=== PATIENT | male | born 1960 | race Caucasian/White ===

== ENCOUNTER 2023-05-27 15:57 | Outpatient (CLI) | payer BC, SELFPAY | END 2023-05-27 15:58 | disposition home or self-care (01) | PROVIDERS: PCP Family Medicine; Visit Provider Family Medicine | DX: Z00.00 Encounter for general adult medical examination without abnormal findings (principal); R05.9 Cough, unspecified; Z12.5 Encounter for screening for malignant neoplasm of prostate; Z13.6 Encounter for screening for cardiovascular disorders | CPT/HCPCS: 80053; 80061; 84153 ==

== ENCOUNTER 2024-06-13 15:04 | Outpatient (CLI) | payer BC, SELFPAY ==
--- NOTE | 2024-06-13 16:00 | CRLHL7_ITS ---
For Patients: As a result of the Century Cures Act, medical imaging exams and procedure reports are released immediately into your electronic medical record. You may view this report before your referring provider. If you have questions, please contact your health care provider. INDICATION: Headaches. COMPARISON: None. TECHNIQUE: Noncontrast CT head. FINDINGS: Normal brain parenchymal morphology. Mild generalized volume loss. No acute intracranial hemorrhage, acute infarct, focal edema, mass effect, or fracture. No midline shift. No abnormal ventricular dilatation. Normal calvarium and skull base. Visualized paranasal sinuses and mastoid air cells are clear. Normal orbits bilaterally. Soft tissue density/cerumen within the external auditory canals bilaterally. IMPRESSION: 1. No acute intracranial abnormality. 2. Mild generalized cerebral volume loss Please note that all CT scans at this facility use dose modulation, iterative reconstruction, and/or weight-based dosing when appropriate to reduce radiation dose to as low as reasonably achievable. Dictated by Duncan Cassidy MD @ 06/13/2024 5:24:26 PM (Electronically Signed)
== END 2024-06-13 15:05 | disposition home or self-care (01) ==
PROVIDERS: PCP Family Medicine; Visit Provider Family Medicine
DX: R51.9 Headache, unspecified (principal); R42 Dizziness and giddiness
CPT/HCPCS: 70450; 80053; 86140

== ENCOUNTER 2024-08-27 08:58 | Outpatient (CLI) | payer BC, SELFPAY | END 2024-08-27 08:59 | disposition home or self-care (01) | LOC: NFLDUCREF 08:59 | PROVIDERS: PCP Family Medicine; Visit Provider Nurse Practitioner | DX: R05.9 Cough, unspecified (principal) | CPT/HCPCS: 85379 ==

== ENCOUNTER 2024-08-27 10:59 | Emergency (ER) | payer BC, SELFPAY ==
--- NOTE | 2024-08-27 11:14 | CRLHL7_ITS ---
For Patients: As a result of the Cures Act, medical imaging exams and procedure reports are released immediately into your electronic medical record. You may view this report before your referring provider. If you have questions, please contact your health care provider. INDICATION: Cough, shortness of breath. Recent fall with rib fracture. Elevated D-dimer and elevated liver enzymes. TECHNIQUE: CT chest PE was acquired with 95 cc Isovue 370 intravenous contrast. COMPARISON: None. FINDINGS: Heart and vasculature: Contrast opacification of the pulmonary arterial tree is adequate. No sign of pulmonary embolism. Aortic arch is left-sided with atherosclerotic calcification. Mild coronary atherosclerosis. No pericardial effusion. Lungs and pleural: No pleural effusion or pneumothorax. Slight centrilobular nodularity within the left lower lobe. Lymph nodes/mediastinum: Calcified mediastinal and left hilar lymph nodes. Chest wall: No masses. Upper abdomen: Diffusely decreased density of the liver. Punctate calcifications within the spleen consistent with old granulomatous disease. Bones: Subacute left 11th rib fracture posteriorly. IMPRESSION: 1. No evidence of pulmonary embolus. 2. Slight centrilobular nodularity within the left lower lobe, possibly infectious bronchiolitis. 3. Subacute left 11th rib fracture posteriorly. 4. Severe hepatic steatosis. 5. Old granulomatous disease. Please note that all CT scans at this facility use dose modulation, iterative reconstruction, and/or weight-based dosing when appropriate to reduce radiation dose to as low as reasonably achievable. Dictated by Titus South MD @ 08/27/2024 1:43:33 PM (Electronically Signed)
[2024-08-27 11:29] VITALS: BP 120/82; PULSE 104; RESP 12; TEMP 36.4; O2SAT 98; BMI 20.5
--- NOTE | 2024-08-27 11:40 | ED.GENADULT ---
HPI - General Adult General Time Seen by Provider: 11:40 Date Seen: 08/27/24 Chief complaint: Shortness of Breath/Dyspnea Stated complaint: poss DVT - from Time Seen by Provider: 08/27/24 11:20 Source: patient and RN notes reviewed Mode of arrival: ambulatory Limitations: no limitations History of Present Illness HPI narrative: This 63yo male is sent to ED from for ongoing cough, SOB and elevated d dimer. He went into today for ongoing coughing, development of inability to lie down without feeling short of breath and noting increasing shortness of breath with exertion. He has no history of prior blood clots, no history of cardiac disease. He has no internal chest pain, no fevers, doesn't think that he has contracted a new illness. He had a rib fracture diagnosed on 07/16/24 from a fall 3 days prior, was seen in . The chest images with left rib views showed a nondisplaced 11th posterior rib fracture and a small left pleural effusion. He was back in on 07/31/24 with multitude of symptoms and tested positive for influenza A. Received some zofran for some nausea and vomiting but no other treatments at that time outside of conservative home management. He was back in clinic () on 08/19/24 with increasing shortness of breath and worsening cough, reported history of COPD in a chronic daily smoker. Was treated with doxycycline 7days and 5 day course of prednisone which he reported did not change his symptoms. D-dimer in Urgent Care today was 1.51 with less than 0.5 being normal. White blood count was normal at 7130, hemoglobin normal at 14.9 but platelet count was 35[address]. His platelet count has typically been in the low 200,000 range on previous labs over the last 2 years. We will repeat his CBC here just to ensure that this is not in error. Patient had a chest x-ray done in clinic which was normal, this is included in the imaging of this note. Related Data Home Medications ?Medication ?Instructions ?Recorded ?Confirmed ibuprofen 800 mg tablet 1,200 mg PO Q8H PRN 06/13/24 08/27/24 Previous Rx's ?Medication ?Instructions ?Recorded fluoxetine 20 mg capsule 20 mg PO QDAY #30 caps 06/26/24 albuterol sulfate 90 mcg/actuation 2 puff inhalation Q4-6H PRN 08/27/24 aerosol inhaler shortness of breath or wheezing #6.7 grams amoxicillin 875 mg-potassium 1 tab PO BID #14 tabs 08/27/24 clavulanate 125 mg tablet benzonatate 200 mg capsule 200 mg PO BID PRN cough #20 caps 08/27/24 prednisone 20 mg tablet 20 mg PO BID #10 tabs 08/27/24 Allergies Allergy/AdvReac Type Severity Reaction Status Date / Time No Known Drug Allergies Allergy Verified 08/27/24 12:59 Review of Systems Status of ROS: Reports: 6 or more systems reviewed and unremarkable except as noted in History and below [facility] Medical History COPD (chronic obstructive pulmonary disease) ?J44.9 - Chronic obstructive pulmonary disease, unspecified (ICD-10) Cough ?R05.9 - Cough, unspecified (ICD-10) Social History What is your current living situation?: declined to answer Problems where you live: declined to answer In the past 12 months, utilities in danger of being shut off: declined to answer In past 12 months, lack of transportation kept you from medical appts, meetings, work, or getting things needed for daily living: declined to answer In the past 12 mos, have been you worried that your food would run out before you had money to buy more?: declined to answer In the past 12 mos, the food you bought just didn't last and you didn't have money to buy more?: declined to answer Smoking Status: Current every day smoker What tobacco products do you use: cigarettes Smoking packs per day: 2 Smoking cigarettes per day: 40.0 Years smoked: 45 Smoking pack-years: 90.00 How often do you have a drink containing alcohol: 4 or more times a week How many standard drinks containing alcohol do you have on a typical day: 7 to 9 How often do you have six or more drinks on one occasion: Daily or almost daily AUDIT-C Alcohol total score: 11 Non-prescribed substance use: denies use How often does anyone, including family, friends and others, physically hurt you: decline to answer How often does anyone, including family, friends and others, insult or talk down to you: decline to answer How often does anyone, including family, friends and others, threaten you with harm: decline to answer How often does anyone, including family, friends and others, scream or curse at you: decline to answer service: Yes Health Related Social Needs: unsheltered homelessness (Z59.02) Exam Const: Vital Signs, click to edit/add: Vital Signs - 24 hr 08/27/24 11:29 08/27/24 12:16 08/27/24 12:23 Temperature 97.6 F Pulse Rate 81 Pulse Rate [Pulse Oximeter] 104 H Respiratory Rate 12 14 Blood Pressure 143/96 H Blood Pressure [Ri ght Upper Arm] 120/82 Pulse Oximetry 98 96 96 Oxygen Delivery Me thod Room Air 08/27/24 13:35 08/27/24 13:45 Temperature Pulse Rate 98 82 Pulse Rate [Pulse Oximeter] Respiratory Rate 14 Blood Pressure 149/100 H Blood Pressure [Ri ght Upper Arm] Pulse Oximetry 99 97 Oxygen Delivery Me thod Patient is alert, interactive, no apparent distress. He is ambulatory into the ED of his own accord, was standing up getting his gown on when I came in. Pupils equal round reactive, sclera are injected but no periorbital swelling or erythema, no drainage. Symmetrical facial function, chewing gum, dentition in poor repair. Neck is supple, no adenopathy or masses. Lungs actually are clear, hear no wheezing or crackles, no tachypnea, no accessory muscle use. CV regular rate and rhythm, no murmur, normal S1-S2, no S3-S4. Abdomen is soft, slender, no rebound or guarding, no organomegaly. He has no lower extremity edema, no calf tenderness. Documenting provider has reviewed patient's vital signs: yes Course Course ED Course: This 63-year-old male is coming in with increasing cough, dyspnea and and exertional dyspnea. This could be a cardiac equivalent, could be underlying thromboembolic disease. Could be ongoing symptoms of postinflammatory change from having influenza. He could have secondary infection or pneumonia. We will be doing chest CT PE protocol, obtain full complement of labs. Will look at a troponin and EKG. Right now is hemodynamically stable, not hypoxic. Reevaluation(s) Time of Reevaluation #1: 13:04 Reevaluation #1: Did review with patient that his liver enzymes are elevated, were normal in June. He states he drinks a lot. I do wonder if the drinking and use of doxycycline may have triggered this. We are going to do a liver ultrasound, loader technician will try to put through all images of the liver that were obtained on his chest CT. He states he is breathing a little better now. Time of Reevaluation #2: 14:06 Reevaluation #2: Have reviewed patient's chest CT and the abdominal ultrasound with him. 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 His whole aorta should be studied outpatient at some time and followed appropriately. He is advised to consider smoking cessation. We like gonzalez reviewed the elevated liver enzymes in the hepatic steatosis. I do think there is definitely component of alcohol injury to the liver here as well. It is possible that the doxycycline may have added to this. He did just finish this. He needs his liver enzymes rechecked within the next week. We discussed signs and symptoms for return in the interim. He is also advised on alcohol cessation or at least minimizing alcohol. Vital Signs Vital signs: Initial Vital Signs Temperature 97.6 F 08/27/24 11:29 Temperature Source Oral 08/27/24 11:29 Pulse Rate 104 H 08/27/24 11:29 Respiratory Rate 12 08/27/24 11:29 Blood Pressure 120/82 08/27/24 11:29 Blood Pressure Mean 94 08/27/24 11:29 Pulse Oximetry 98 08/27/24 11:29 Oxygen Delivery Method Room Air 08/27/24 11:29 Vital Signs Temperature 97.6 F 08/27/24 11:29 Pulse Rate 104 H 08/27/24 11:29 Respiratory Rate 12 08/27/24 11:29 Blood Pressure 120/82 08/27/24 11:29 Pulse Oximetry 98 08/27/24 11:29 Oxygen Delivery Method Room Air 08/27/24 11:29 Temperature 97.6 F 08/27/24 11:29 Pulse Rate 82 08/27/24 13:45 Respiratory Rate 14 08/27/24 13:35 Blood Pressure 149/100 H 08/27/24 13:35 Pulse Oximetry 97 08/27/24 13:45 Oxygen Delivery Method Room Air 08/27/24 11:29 Medical Decision Making Lab Data Lab results reviewed: Yes I reviewed the patient's lab results Labs: Lab Results 08/27/24 Range/Units 11:55 WBC 6.75 (4.50-11.00) K/uL RBC 4.36 (4.30-5.90) m/uL Hgb 14.7 (13.5-17.5) gm/dL Hct 42.9 (37.0-53.0) % MCV 98 (80-100) fL MCH 34 (26-34) pg MCHC 34 (32-36) gm/dL RDW Coeff of Rola 12.9 (11.5-15.5) % Plt Count 82 L (140-440) K/uL Neut % (Auto) 74.4 H (42.0-72.0) % Lymph % (Auto) 9.5 L (20-44) % Harding % (Auto) 12.3 H (0.0-11.0) % Eos % (Auto) 1.2 (0.0-7.0) % Baso % (Auto) 1.3 (0.0-3.0) % Neut # (Auto) 5.00 (1.7-7.0) K/uL Lymph # (Auto) 0.60 L (0.90-2.90) K/uL Harding # (Auto) 0.80 (0.00-0.90) K/UL Eos # (Auto) 0.08 (0.00-0.50) K/uL Baso # (Auto) 0.09 (0.00-0.30) K/uL Abs Immat Gran (auto) 0.09 (0.00-0.30) K/uL Imm/Tot Granulo (auto) 1.3 % INR 0.78 L (0.91-1.10) APTT 28 (23-33) Seconds VBG pH 7.411 (7.32-7.43) VBG pCO2 47 (40-50) mmHG VBG pO2 < 30.1 (25-47) mmHG VBG HCO3 30 H (21-28) mmol/L Sodium 133 L (135-149) mmol/L Potassium 4.6 (3.6-5.1) mmol/L Chloride 98 (96-114) mmol/L Carbon Dioxide 27 (20-32) mmol/L Anion Gap 8 (7-15) mEq/L BUN 9 (7-30) mg/dL Creatinine 0.6 (0.5-1.5) mg/dL Estimated Creat Clear 71.17 Estimated GFR 110 ml/min Glucose 71 (60-115) mg/dL Lactate 2.8 H (0.5-1.9) mmol/L Calcium 8.4 (8.4-10.6) mg/dL Total Bilirubin 1.1 (0.1-1.5) mg/dL AST 291 H (12-35) U/L ALT 184 H (4-50) U/L Alkaline Phosphatase 167 H (40-150) U/L Troponin I < 0.01 L (0.01-0.04) ng/mL C-Reactive Protein 2.7 H (0.5-1.0) mg/dL NT-Pro-B Natriuret Pep 24 pg/mL Total Protein 7.7 (6.0-8.3) g/dL Albumin 4.2 (3.3-5.0) g/dL Imaging Data Chest x-ray: Attestation: I have reviewed the pertinent imaging results. Radiologist's impression: Patient: ERASTO HOOD Facility:?[facility] Patient ID:?[id number] Site Patient ID:?[id number]. Site :?[id number] Study:?XRay-Chest -08/27/2024 9:16:39 AM Ordering Physician:Darren Gonzalez Final Report: Indication: cough < 4 weeks, known left rib fracture Technique: Two view(s) of the chest. Comparison: 07/16/2024. Findings: Unchanged cardiomediastinal silhouette and pulmonary vasculature. Similar calcified left hilar lymph node. Lungs are well inflated. No new consolidation. No pleural effusion or pneumothorax. Known left 11th rib fracture is better seen on prior radiographs. Unchanged mild anterior wedging involving 2 adjacent lower thoracic vertebral bodies. Impression: No acute cardiopulmonary abnormality identified. Dictated by Latoya Dye MD @ 08/27/2024 9:25:21 AM (Electronic Signature) CT scan - chest: Attestation: I have reviewed the pertinent imaging results. Radiologist's impression: Patient: ERASTO HOOD Facility:?[facility] Patient ID:?[id number] Site Patient ID:?[id number]. Site :?[id number] Study:?CT-Chest Angio 95CC ISOVUE 370-08/27/2024 1:02:06 PM Ordering Physician:Karl Sandra Final Report: INDICATION: Cough, shortness of breath. Recent fall with rib fracture. Elevated D-dimer and elevated liver enzymes. TECHNIQUE: CT chest PE was acquired with 95 cc Isovue 370 intravenous contrast. COMPARISON: None. FINDINGS: Heart and vasculature: Contrast opacification of the pulmonary arterial tree is adequate. No sign of pulmonary embolism. Aortic arch is left-sided with atherosclerotic calcification. Mild coronary atherosclerosis. No pericardial effusion. Lungs and pleural: No pleural effusion or pneumothorax. Slight centrilobular nodularity within the left lower lobe. Lymph nodes/mediastinum: Calcified mediastinal and left hilar lymph nodes. Chest wall: No masses. Upper abdomen: Diffusely decreased density of the liver. Punctate calcifications within the spleen consistent with old granulomatous disease. Bones: Subacute left 11th rib fracture posteriorly. IMPRESSION: 1. No evidence of pulmonary embolus. 2. Slight centrilobular nodularity within the left lower lobe, possibly infectious bronchiolitis. 3. Subacute left 11th rib fracture posteriorly. 4. Severe hepatic steatosis. 5. Old granulomatous disease. Please note that all CT scans at this facility use dose modulation, iterative reconstruction, and/or weight-based dosing when appropriate to reduce radiation dose to as low as reasonably achievable. Dictated by Titus South MD @ 08/27/2024 1:43:33 PM (Electronic Signature) US - abdomen: Attestation: I have reviewed the pertinent imaging results. Radiologist's impression: Patient: ERASTO HOOD Facility:?[facility] Patient ID:?[id number] Site Patient ID:?[id number]. Site :?1960 Study:?US-Abdomen RUQ-08/27/2024 1:45:29 PM Ordering Physician:Karl Sandra Final Report: Indication: Elevated LFTs Technique: Multiple transverse and longitudinal sonographic grayscale images of the right upper quadrant of the abdomen were obtained, supplemented with color, power, and spectral Doppler imaging. Comparison: None. Findings: Pancreas: Visualized portions normal. Liver length: 16.7 cm. Liver appearance: Moderate hepatic steatosis. No biliary ductal dilation. Portal vein: Patent, hepatopetal flow. CBD: 2.2 cm. Gallbladder: Negative sonographic Hernandez sign. Normal. Right kidney length: 10.9 cm. Right kidney appearance: Normal. Mildly ectatic proximal aorta measuring 3.1 centimeter. Impression: 1. Moderate hepatic steatosis. 2. Mildly ectatic proximal aorta measuring 3.1 centimeter. Dictated by Ayaan Pollock MD @ 08/27/2024 1:56:20 PM (Electronic Signature) ECG Data Attestation: I personally reviewed and interpreted this ECG as follows: (Normal sinus rhythm, 91 beats per minute. No evidence of any ischemia or infarct.) Discharge Plan Discharge Clinical Impression: Elevated liver enzymes, Acute bronchiolitis due to other infectious organisms, Alcohol induced fatty liver Patient Disposition: Home, Self-Care Condition: Stable Additional Instructions: Highly encourage you to consider smoking cessation as well as alcohol cessation. You need to follow up in clinic within the next week, liver enzymes need to be followed as they were elevated here today. We will start Augmentin and do another course of prednisone to cover for lung infection. Try the albuterol inhaler that was sent in through urgent care. Do recommend getting pulmonary function testing when your back to baseline to truly diagnosed COPD. If the albuterol inhaler does not help, there are specific inhalers for COPD that you can talk to your primary care provider about. If you are developing increased respiratory symptoms, become jaundiced (yellowing of skin or eyes), have vomiting, Activity Level: Activity as Tolerated Prescriptions: New amoxicillin-pot clavulanate 875-125 mg tablet 1 tab PO BID Qty: 14 0RF prednisone 20 mg tablet 20 mg PO BID Qty: 10 0RF No Action albuterol sulfate 90 mcg/actuation HFA aerosol inhaler 2 puff inhalation Q4-6H PRN (Reason: shortness of breath or wheezing) Qty: 6.7 0RF benzonatate 200 mg capsule 200 mg PO BID PRN (Reason: cough) Qty: 20 0RF ibuprofen 800 mg tablet 1,200 mg PO Q8H PRN fluoxetine 20 mg capsule 20 mg PO QDAY Qty: 30 1RF Follow Up/Referrals: Aleksander Casanova MD [Primary Care Provider] - Stand Alone Forms: [facility] Info Instructions
[2024-08-27 12:10] LABS: HCO3 VBG 30 mmol/L (21-28); Lactate* 2.8 mmol/L (0.5-1.9); PCO2 VBG 47 mmHG (40-50); PO2 VBG < 30.1 mmHG (25-47); pH VBG 7.411 (7.32-7.43)
--- OUTSIDE RECORDS SUMMARY | 2024-08-27 12:10 | XMS_ITS | Clinical Summary ---
Author Organization [employer] [facility] Address [place], [place] [address] Care Team Providers Care Logistics Planning Manager Name Role Phone Aleksander Casanova MD Primary Care Provider [phone] Allergies No known active allergies Medications ibuprofen (ADVIL; MOTRIN) 200 mg tablet Take 1 tablet by mouth every 4 hours. 0 12/31/2019 Active meloxicam 15 mg tabletIndication s:Bilateral hip pain,Chronic left shoulder pain Take 1 Tablet (15 mg) by mouth once daily. 30 Tablet 2 10/10/2023 Active Active Problems Problem Noted Date Diagnosed Date Ventral hernia without obstruction or gangrene 0 03/17/2020 Tobacco dependence 01/04/2020 Social History Tobacco Use Types Packs/Day Years Used Date Smoking Tobacco: Every Day Cigarettes 1.5 40 Smokeless Tobacco: Never Tobacco Cessation:Counseling Given: Yes Alcohol Use Standard Drinks/Week Comments Yes 0 (1 standard drink = 0.6 oz pur e alcohol) beer Social Connections Answer Date Recorded Do you often feel lonely or isolated from those around you? 0 10/10/2023 Financial Resource Strain Answer Date R ecorded Difficulty of Paying Living Expenses 3 10/10/2023 Difficulty of Paying Living Expenses Not on file 10/10/2023 Food Insecurity Answer Date Recorded Do you worry your food will run out before you are able to buy more? 1 10/10/2023 Transportation Needs Answer Date Record ed Does lack of transportation keep you from medica l appointments? 1 10/10/2023 Does lack of transportation keep you from work, meetings or getting things that you need? 1 10/10/2023 Housing Stability Answer Date Recorded What is your housing situation today? 1 10/10/2023 Utilities Answer Date Recorded Do you have trouble paying f or utilities (for example, heat, electricity, water, phone)? 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 on file Not on file Not on file Obstetrics History Last Filed Vital Signs Vital Sign Reading Time Taken Comments Blood Pressure 139/80 10/10/2023 9:27 AM CDT Pulse 88 10/10/2023 9:27 AM CDT Temperature 37 C (98.6 F) 03/12/2020 2:08 PM CDT Respiratory Rate 14 01/21/2020 3:21 PM CDT Oxygen Saturation 98% 10/10/2023 9:27 AM CDT Inhaled Oxygen Concentration - - Weight 70.8 kg (156 lb) 10/10/2023 9:27 AM CDT w ith shoes Height 177.8 cm (5' 10) 10/10/2023 9:27 AM CDT Body Mass Index 22.38 10/10/2023 9:27 AM CDT Plan of Treatment Health Maintenance Due Date Last Done Comments Tdap 1973 Depression screening for age 12+ 1974 HIV for age 15-65 1977 Hepatitis C screening for age 18-79 1980 Pneumococcal series for age 50+ (1 of 2 - PCV) 1981 Tetanus booster 1982 Colonoscopy through age 75 10/23/2007 Lipids for age 45-75 10/23/[address] (for lung CA) age 50-80 2012 Zoster (shingles) series for age 50+ (1 of 2) 2012 COVID-19 vaccine series ( - season) 2024 Influenza for age 50-64 04/01/2024 BMI (ht and wt on same day) for age 18+ 10/09/2024 0 10/10/2023, 01/04/2020 RSV vaccine for adults or pr egnancy (1 - 1-dose 75+ series) 2037 Medical Devices Implanted Type Area Hunting And Fishing Guide Device Identifier Shelf Expiration Date Model / Serial / Lot Mesh Ventral 1.7in Ventralex St W/[facility] - [id number] Implanted:Qty: 1 on 01/08/2020 by Jelani Stratton MD at [facility] N/A: Abdomen [employer] 04/28/2021 [id number] / / [id number] Insurance [facility] [place] Advance Directives * Full Code (Latest Code Status on File) Date Activated Date Inactivated Comments 01/08/2020 7:57 AM 01/08/2020 4:25 PM Question Answer Comments Code Status Discussion: Not Discussed Care Teams Logistics Planning Manager Relationship Specialty Start Date End Date Aleksander Casanova MD [id number] [place] [address] PCP - General Family Practice 10/10/23
[2024-08-27 12:12] LABS: Basophils Absolute Auto 0.09 K/uL (0.00-0.30); Basophils Percent Auto 1.3 % (0.0-3.0); Eosinophils Absolute Auto 0.08 K/uL (0.00-0.50); Eosinophils Percent Auto 1.2 % (0.0-7.0); Hematocrit 42.9 % (37.0-53.0); Hemoglobin* 14.7 gm/dL (13.5-17.5); Immature Granulocytes Abs Auto 0.09 K/uL (0.00-0.30); Immature Granulocytes Pct Auto 1.3 %; Lymphocytes Percent Auto 9.5 % (20-44); Mean Corpuscular HGB Conc 34 gm/dL (32-36); Mean Corpuscular Hemoglobin 34 pg (26-34); Mean Corpuscular Volume 98 fL (80-100); Monocytes Percent Auto 12.3 % (0.0-11.0); Neutrophils Percent Auto 74.4 % (42.0-72.0); Platelet Count* 82 K/uL (140-440); RDW Coefficient of Variation % 12.9 % (11.5-15.5); Red Blood Count 4.36 m/uL (4.30-5.90); White Blood Count* 6.75 K/uL (4.50-11.00)
[2024-08-27 12:16] VITALS: O2SAT 96
[2024-08-27 12:16] LABS: Slide Review Reflex No
[2024-08-27 12:23] VITALS: BP 143/96; PULSE 81; RESP 14; O2SAT 96
[2024-08-27 12:26] LABS: INR 0.78 (0.91-1.10); Prothrombin Time 11.3 Seconds
[2024-08-27 12:27] LABS: Partial Thromboplastin Time* 28 Seconds (23-33)
[2024-08-27 12:29] LABS: Albumin* 4.2 g/dL (3.3-5.0); Chloride* 98 mmol/L (96-114)
[2024-08-27 12:30] LABS: Potassium* 4.6 mmol/L (3.6-5.1); Sodium* 133 mmol/L (135-149)
[2024-08-27 12:32] LABS: Creatinine* 0.6 mg/dL (0.5-1.5); Est. Creatinine Clearance* 71.17; Estimated Glomerular Filt Rate 110 ml/min
[2024-08-27 12:33] LABS: Alanine Aminotransferase* 184 U/L (4-50); Alkaline Phosphatase* 167 U/L (40-150); Anion Gap 8 mEq/L (7-15); Aspartate Amino Transferase* 291 U/L (12-35); Bilirubin Total* 1.1 mg/dL (0.1-1.5); Blood Urea Nitrogen* 9 mg/dL (7-30); Calcium* 8.4 mg/dL (8.4-10.6); Carbon Dioxide* 27 mmol/L (20-32); Glucose* 71 mg/dL (60-115); Total Protein* 7.7 g/dL (6.0-8.3)
[2024-08-27 12:36] LABS: C Reactive Protein* 2.7 mg/dL (0.5-1.0)
[2024-08-27 12:46] LABS: NT Pro B Type NatriureticPept* 24 pg/mL; Troponin I* < 0.01 ng/mL (0.01-0.04)
--- NOTE | 2024-08-27 12:51 | CRLHL7_ITS ---
For Patients: As a result of the Century Cures Act, medical imaging exams and procedure reports are released immediately into your electronic medical record. You may view this report before your referring provider. If you have questions, please contact your health care provider. Indication: Elevated LFTs Technique: Multiple transverse and longitudinal sonographic grayscale images of the right upper quadrant of the abdomen were obtained, supplemented with color, power, and spectral Doppler imaging. Comparison: None. Findings: Pancreas: Visualized portions normal. Liver length: 16.7 cm. Liver appearance: Moderate hepatic steatosis. No biliary ductal dilation. Portal vein: Patent, hepatopetal flow. CBD: 2.2 cm. Gallbladder: Negative sonographic Hernandez sign. Normal. Right kidney length: 10.9 cm. Right kidney appearance: Normal. Mildly ectatic proximal aorta measuring 3.1 centimeter. Impression: 1. Moderate hepatic steatosis. 2. Mildly ectatic proximal aorta measuring 3.1 centimeter. Dictated by Ayaan Pollock MD @ 08/27/2024 1:56:20 PM (Electronically Signed)
[2024-08-27 13:35] VITALS: BP 149/100; PULSE 98; RESP 14; O2SAT 99
[2024-08-27 13:45] VITALS: PULSE 82; O2SAT 97
== END 2024-08-27 14:23 | disposition home or self-care (01) ==
PROVIDERS: Emergency Provider Family Medicine; PCP Family Medicine
DX: J21.8 Acute bronchiolitis due to other specified organisms (principal); K70.0 Alcoholic fatty liver; R74.01 Elevation of levels of liver transaminase levels
CPT/HCPCS: 36415; 71275; 76705; 80053; 82803; 83605; 83880; 84484; 85025; 85610; 85730; 86140; 93005; 94761; 99285; Q9967